=== PATIENT | male | born 1985 | race Caucasian/White ===

== ENCOUNTER 2016-09-08 01:16 | Emergency (ER) | payer OTHER ==
[2016-09-08] MEDS ORDERED: DILAUDID 1 MG/ML AMP ONE (03:02)
== END 2016-09-08 03:12 | disposition home or self-care (01) ==
LOC: ER 01:16
CPT/HCPCS: 73630; 96372 ×2; 99284; J1170

== ENCOUNTER 2016-09-10 13:17 | Emergency (ER) | payer OTHER ==
[2016-09-10] MEDS ORDERED: ORPHENADRINE 60 MG/2 ML AMP ONE (14:39)
[2016-09-10] MEDS ORDERED: MORPHINE 4 MG/ML SYR ONE (14:39)
== END 2016-09-10 15:41 | disposition home or self-care (01) ==
LOC: ER 13:26
DX: S16.1XXA Strain of muscle, fascia and tendon at neck level, initial encounter (principal); M62.838 Other muscle spasm
CPT/HCPCS: 96372; 99283; J2270

== ENCOUNTER 2016-09-25 18:07 | Emergency (ER) | payer OTHER | END 2016-09-25 21:08 | disposition home or self-care (01) | LOC: ER 18:07 | DX: R10.32 Left lower quadrant pain (principal); K59.00 Constipation, unspecified; Z79.899 Other long term (current) drug therapy; F17.210 Nicotine dependence, cigarettes, uncomplicated; K21.9 Gastro-esophageal reflux disease without esophagitis; F32.9 Major depressive disorder, single episode, unspecified; F41.1 Generalized anxiety disorder; F84.5 Asperger's syndrome | CPT/HCPCS: 36415; 74022; 80053; 80307; 81003; 83690; 85025 ==